=== PATIENT | male | born 1975 | race Caucasian/White ===

== ENCOUNTER 2017-03-10 16:14 | Emergency (ER) | payer BC, OTHER ==
--- NOTE | 2017-03-10 16:50 | EDM.PDOC ---
ED HPI GENERAL MEDICAL PROBLEM - General Chief Complaint: Chest Pain Stated Complaint: CHEST PAIN Time Seen by Provider: 03/10/17 16:49 Source of Information: Reports: Patient History Limitations: Reports: No Limitations - History of Present Illness INITIAL COMMENTS - FREE TEXT/NARRATIVE: 41-year-old male presents to the ED complaining of intermittent left-sided chest pain. It is worse when he gets up from a lying or sitting position and worse with certain movements or pressures placed on this area. Spine hurting off and on for the last 3-4 days. He can't remember any trauma to the area. It does hurt to take a deep breath. Pain is constant in etiology but gets sharp and stabbing with certain movements or positions. It was certainly worsened by sneezing. Denies any fever or chills or cough or sputum production. He otherwise is in good health and a nonsmoker. No history of coronary disease. Has not noticed any rashes in this area. Onset: Gradual (4 days) Onset Date: 03/06/17 Duration: Day(s): Location: Reports: Chest Quality: Reports: Ache (Left mid lateral chest wall.), Pressure, Stabbing Severity: Moderate (Occasionally sharp and stabbing. Rates pain as 5-6 out of 10.) Improves with: Reports: None Worsens with: Reports: Breathing, Movement (Certain movements particularly getting in and out of bed or lying down and sitting up.) Context: Reports: Other (Came on out of nowhere.). Denies: Activity, Exercise, Lifting, Sick Contact, Trauma Associated Symptoms: Reports: No Other Symptoms, Chest Pain. Denies: Confusion , Cough, cough w sputum (See history present illness), Diaphoresis, Fever/Chills , Headaches, Loss of Appetite, Malaise, Nausea/Vomiting, Rash, Seizure, Shortness of Breath Treatments CERTIFIED PHYSICIAN'S ASSISTANT: Reports: Other (see below) (None.) Left Chest Pain Score (Numeric/FACES): 2 - Related Data Allergies Allergy/AdvReac Type Severity Reaction Status Date / Time No Known Allergies Allergy Verified 03/10/17 16:24 Home Meds: Home Meds Diclofenac Sodium [Voltaren] 50 mg PO TIDMEALS #224 tab.ec 03/10/17 [Rx] predniSONE [Deltasone] 20 mg PO ASDIRECTED #15 tablet 03/10/17 [Rx] Past Medical History - Past Surgical History GI Surgical History: Reports: Other (See Below) Other GI Surgeries/Procedures: pyloric stenosis repair as an Social & Family History - Tobacco Use Smoking Status *Q: Never Smoker - Caffeine Use Caffeine Use: Reports: Coffee - Recreational Drug Use Recreational Drug Use: No - Living Situation & Occupation Living situation: Reports: Occupation: Employed ED ROS GENERAL - Review of Systems Review Of Systems: See Below Constitutional: Denies: Fever, Chills, Malaise, Weakness, Fatigue, Decreased Appetite, Weight Loss HEENT: Reports: Eye Discharge Respiratory: Reports: Shortness of Breath (Only on deep breathing because of the pain). Denies: Wheezing ( in the left chest limits his ability take a deep breath.), Pleuritic Chest Pain, Cough, Sputum, Hemoptysis Cardiovascular: Reports: Chest Pain. Denies: Blood Pressure Problem, Claudication, Dyspnea on Exertion, Edema, Lightheadedness, Orthopnea (Blood pressure is elevated at this time although it's likely incorrect visits 112/98. He will be rechecked) Endocrine: Reports: No Symptoms GI/Abdominal: Reports: No Symptoms : Reports: No Symptoms Musculoskeletal: Reports: No Symptoms Skin: Reports: No Symptoms Neurological: Reports: No Symptoms Psychiatric: Reports: No Symptoms Hematologic/Lymphatic: Reports: No Symptoms Immunologic: Reports: No Symptoms ED EXAM, GENERAL - Physical Exam Exam: See Below Exam Limited By: No Limitations General Appearance: Alert, WD/WN, Anxious, Mild Distress Throat/Mouth: Normal Inspection, Normal Lips, Normal Teeth, Normal Oropharynx Head: Atraumatic, Sinus Tenderness Neck: Normal Inspection, Supple, Non-Tender, Full Range of Motion Respiratory/Chest: No Respiratory Distress, Lungs Clear, Normal Breath Sounds, No Accessory Muscle Use, Other (Patient has marked chest wall tenderness on palpation of ribs 45 and 6 in the midclavicular line and worse in the anterior and mid axillary line. There are no rashes to suggest shingles. The sixth rib and in fact was very tender to touch suggesting a periostitis.) Cardiovascular: Normal Peripheral Pulses, Regular Rate, Rhythm, No Edema, No Gallop, No JVD, No Murmur, No Rub Peripheral Pulses: 3+: Posterior Tibial (L), Posterior Tibial (R), Dorsalis Pedis (L), Dorsalis Pedis (R) GI/Abdominal: Normal Bowel Sounds, Soft, Non-Tender, No Organomegaly, No Distention Back Exam: Normal Inspection, Full Range of Motion. No: CVA Tenderness (L), CVA Tenderness (R) Extremities: Normal Inspection, Normal Range of Motion, No Pedal Edema, Normal Capillary Refill, Pedal Edema Neurological: Alert, Oriented, CN II-XII Intact, Normal Cognition, Normal Gait Psychiatric: Normal Affect, Normal Mood Skin Exam: Warm, Dry, Intact, Normal Color, No Rash EKG INTERPRETATION EKG Date: 03/10/17 Time: 16:20 Rhythm: Other (Sinus arrhythmia.) Rate (Beats/Min): 65 [place]: RAD-Right [place] Deviation (Minor right axis deviation at 109.) P-Wave: Present QRS: Normal ST-T: Normal QT: Normal Course - Vital Signs Last Recorded V/S: Last Vital Signs Temp 36.4 C 03/10/17 16:18 Pulse 73 03/10/17 16:18 Resp 18 03/10/17 16:18 BP 112/98 H 03/10/17 16:18 Pulse Ox - Orders/Labs/Meds Orders: Active Orders 24 hr Category Date Time Status EKG 12 Lead [EKG Documentation Completion] [RC] STAT Care 03/10/17 16:20 Active Chest 1V Frontal [CR] Stat Exams 03/10/17 16:49 Taken - Radiology Interpretation Free Text/Narrative:: 41-year-old male presents to the ED with diffuse left precordial lateral chest pain for the last 4 days. Worsened by movement such as lying down and sitting up more pressure on the area causes exquisite pain. He doesn't remember any trauma to the chest wall in place. Denies cough or sputum production no fever or chills. ECG shows sinus arrhythmia at 65/m with no signs of ischemia. On examination lungs are clear heart is normal. Chest wall however was exquisitely tender to touch ribs 45 and 6 midclavicular line in worse in the anterior and mid axillary line of the left chest wall. No rashes are present to suggest shingles. He appears to have inflammation of the rib lining itself I periostitis. Plan 1 view chest x-ray to be obtained to rule out any other pathology of the rib itself. - Re-Assessments/Exams Free Text/Narrative Re-Assessment/Exam: 03/10/17 17:02 portable chest x-rays within normal limits showing no obvious other maladies of the ribs or underlying lung. Cardiac silhouette is normal. Plan will be to place him on anti-inflammatories. I'm going to use Voltaren 50 mg 3 times a day for 8 days and prednisone 20 mg twice daily for 5 days and then once daily in the morning only for another 5 days to take inflammation out of his chest wall. Departure - Departure Time of Disposition: 17:06 Disposition: Home, Self-Care 01 Condition: Fair Clinical Impression: Anterior chest wall pain Prescriptions: Diclofenac Sodium [Voltaren] 50 mg PO TIDMEALS #224 tab.ec predniSONE [Deltasone] 20 mg PO ASDIRECTED #15 tablet Instructions: Chest Wall Pain, [id number] Referrals: PCP,None [Primary Care Provider] - Forms: ED Department Discharge Additional Instructions: Evaluation in the emergency room today in regards to persistent aching pain in the left lateral chest wall which intermittently becomes very sharp and stabbing with certain position changes. Noted it to be worse with sitting up from bed or lying down when the muscle stretch or with deep breathing. Lungs were clear to auscultation percussion heart is sinus ECG normal chest x-rays also normal. Motor revealed marked tenderness of the fourth fifth and sixth ribs in the midclavicular line and also in the to the axillary line which is her armpit area. This means that the lining of the rib is inflamed likely from a viral infection. Treatment is therefore anti-inflammatory Voltaren 50 mg 3 times daily for the next 8 days to clear up inflammation and reduce pain and Deltasone 20 mg with breakfast and supper for 5 days and then 1 tablet in the morning only for further 5 days to relieve pain and inflammation as well. No both of these medications take about 36 hours to start work well but typically every day after that you notice a dramatic difference in reduction of pain. There is no restriction on activities although commonsense is involved where we do not try to use the chest wall muscles much for the next 5 or 6 days. Follow- up with personal physician or return to the ED if not completely back to normal in 10 days time. - My Orders Last 24 Hours: My Active Orders 03/10/17 16:49 Chest 1V Frontal [CR] Stat - Assessment/Plan Last 24 Hours: My Active Orders 03/10/17 16:49 Chest 1V Frontal [CR] Stat
[2017-03-10 17:20] VITALS: BP 121/87
--- NOTE | 2017-03-11 08:43 | CR ---
Chest: Frontal view of the chest was obtained. Comparison: No previous chest imaging. Heart size and mediastinum are within normal limits. Minimal density is noted above the left hemidiaphragm either due to minimal atelectasis or scarring. Lungs otherwise are clear. Bony structures are grossly intact. Impression: 1. Nothing acute is identified on frontal chest x-ray. Diagnostic code #2
== END 2017-03-10 17:15 | disposition home or self-care (01) ==
LOC: JD.ED 16:14
DX: R07.89 Other chest pain (principal); Z98.890 Other specified postprocedural states
CPT/HCPCS: 71010; 71010-26; 93005; 99283; 99285-25